=== PATIENT | male | born 1965 | race Caucasian/White ===

== ENCOUNTER 2019-12-24 12:02 | Inpatient (IN) | payer MEDICAID ==
[~2019-12-24] VITALS: Ht 190.5 cm; Wt 156.0 kg
[2019-12-24] MEDS ORDERED: NO HOME MEDS (12:48)
[2019-12-24] MEDS ORDERED: normal saline 1000ML IV soln IVB ONE (12:55)
[2019-12-24 13:22] LABS: BASOPHILS % (AUTO) 0.2 % (0-1); EOSINOPHILS % (AUTO) 0.7 % (0-6); HEMATOCRIT 34.7 % (42.0-52.0); HEMOGLOBIN 11.3 g/dl (14.0-17.9); LYMPHOCYTES # (AUTO) 0.8 X10'3 (1.1-4.8); LYMPHOCYTES % (AUTO) 12.6 % (21-51); MEAN CORPUSCULAR HEMOGLOBIN 25.6 PG (27.0-31.0); MEAN CORPUSCULAR HGB CONC 32.5 g/dL (33.0-36.5); MEAN CORPUSCULAR VOLUME 78.8 FL (78-98); MEAN PLATELET VOLUME 7.5 FL (7.4-10.4); MONOCYTES # (AUTO) 0.9 X10'3 (0-0.9); MONOCYTES % (AUTO) 13.6 % (2-12); NEUTROPHILS # (AUTO) 4.6 X10'3 (1.8-7.7); NEUTROPHILS % (AUTO) 72.9 % (42-75); PLATELET COUNT 195 X10'3 (140-440); RED CELL DISTRIBUTION WIDTH 17.4 % (11.5-14.5); WHITE BLOOD COUNT 6.4 X10'3 (4.5-11.0)
[2019-12-24 13:25] LABS: CLARITY,URINE CLEAR (Clear); COLOR,URINE STRAW (Yellow); GLUCOSE, URINE NEGATIVE (Neg); KETONES,URINE NEGATIVE (Neg); LEUKOCYTE ESTERASE ,URINE NEGATIVE (Neg); NITRITES, URINE NEGATIVE (Neg); OCCULT BLOOD,URINE SMALL (Neg); PROTEIN,URINE 30 mg/dl (Neg); UROBILINOGEN,URINE 0.2 E.U/dL (0.2-1.0)
[2019-12-24 13:27] LABS: UA COLLECTION TYPE NON-SPECIFIED
[2019-12-24] MEDS ORDERED: piperacillin/tazo 3.375gm/50ml 50 ML IV ONE (13:30)
[2019-12-24 13:31] LABS: BACTERIA,URINE NONE SEEN /HPF (Neg); MUCUS STRANDS NONE SEEN /LPF (Neg); RBC,URINE NONE SEEN /HPF (0-2); SQUAMOUS EPITHELIAL CELL,UR FEW /LPF (FEW); WBC,URINE NONE SEEN /HPF (0-4)
[2019-12-24 13:33] LABS: PARTIAL THROMBOPLASTIN TIME 28 SECONDS (22-32)
[2019-12-24 13:35] LABS: ALANINE AMINOTRANSFERASE 114 U/L (12-78); ALBUMIN 2.1 G/DL (3.4-5.0); ALBUMIN/GLOBULIN RATIO 0.4 (1.1-1.5); ALKALINE PHOSPHATASE 105 IU/L (46-116); ANION GAP 4 (8-16); ASPARTATE AMINO TRANSFERASE 103 U/L (10-37); BILIRUBIN,TOTAL 0.3 MG/DL (0.1-1.0); BLOOD UREA NITROGEN 15 MG/DL (7-18); BUN/CREATININE RATIO 10.6 (5.4-32.0); CALCIUM 7.2 MG/DL (8.5-10.1); CHLORIDE 98 MMOL/L (99-107); CREATININE 1.41 MG/DL (0.60-1.10); GLUCOSE 209 MG/DL (70-104); POTASSIUM 3.6 MMOL/L (3.5-5.1); SODIUM 134 MMOL/L (135-145); TOTAL CARBON DIOXIDE 31.6 MMOL/L (24-32); TOTAL PROTEIN 7.9 G/DL (6.4-8.2); eGFR 53 ML/MIN
[2019-12-24 13:43] LABS: C-REACTIVE PROTEIN 5.33 MG/DL (0.0-0.5); LACTATE DEHYDROGENASE 292 U/L (85-227); MAGNESIUM 1.6 MG/DL (1.5-2.4); TROPONIN I 0.09 NG/ML (0.0-0.05)
[2019-12-24] MEDS ORDERED: furosemide 10 MG/1 ML 10ml inj IV ONE (14:00)
[2019-12-24] MEDS ORDERED: aspirin 325mg tablet PO ONE (14:00)
[2019-12-24 14:29] LABS: HEMOGLOBIN A1C 7.7 % (4.5-6.2)
[2019-12-24] MEDS ORDERED: magnesium hydroxide 30ml (MOM) UD suspension PO PRN (15:10)
[2019-12-24] MEDS ORDERED: nitroGLYCERIN 0.4mg SUBLingual tab SL PRN (15:10)
[2019-12-24] MEDS ORDERED: morphine 2 MG/ML inj. syringe IV PRN ×2 (15:10)
[2019-12-24] MEDS ORDERED: acetaminophen 325mg tablet PO PRN ×2 (15:10)
[2019-12-24] MEDS ORDERED: mag hydrox/Alum hydrox/simeth 30ml oral suspension PO PRN (15:10)
[2019-12-24] MEDS ORDERED: HYDROcodone/acetaminophen 10/325mg tab PO PRN (15:10)
[2019-12-24] MEDS ORDERED: ondansetron/PF 4mg/2ml inj IV PRN (15:10)
--- NOTE | 2019-12-24 15:43 | NUR ---
Pt.'s mother called to check on pt., Pt. says he is OK with me telling her he is being admitted. Informed pt.'s mother he is being admitted and she can visit him.
[2019-12-24 16:45] LABS: URINE AMPHETAMINE SCREEN NEGATIVE (Neg); URINE BARBITUATE SCREEN NEGATIVE (Neg); URINE BENZODIAZEPINES SCREEN NEGATIVE (Neg); URINE CANNABINOID SCREEN NEGATIVE (Neg); URINE COCAINE SCREEN NEGATIVE (Neg); URINE METHADONE SCREEN NEGATIVE (Neg); URINE OPIATE SCREEN NEGATIVE (Neg); URINE PHENCYCLIDINE SCREEN NEGATIVE (Neg)
--- NOTE | 2019-12-24 17:05 | NUR ---
RECEIVED REPORT FROM PAUL. CHAIREZ VIA TELEPHONE.
[2019-12-24 17:25] VITALS: BP 159/99
[2019-12-24] MEDS ORDERED: dextrose ORAL solution 15 GM/59 ML bottle PO PRN ×2 (17:50)
[2019-12-24] MEDS ORDERED: MESSAGE TO PHARMACY PO ONE (17:50)
[2019-12-24] MEDS ORDERED: insulin Lispro (HumaLOG) vial - multi-dose SQ SCH (17:50)
[2019-12-24] MEDS ORDERED: dextrose 50%-water 50ml dispensing syringe IV PRN ×2 (17:50)
[2019-12-24] MEDS ORDERED: glucagon, human recombinant 1mg kit SUBCUT PRN (17:50)
--- NOTE | 2019-12-24 17:59 | NUR ---
PAGER ID: [phone] MESSAGE: DR. DIAS, [id number]/SHERRIE, WOULD YOU LIKE TO ORDER ACCUCHECKS AC/HS WITH PROTOCOL? CONOR [id number]. TY
[2019-12-24 18:00] VITALS: BP 165/101
--- NOTE | 2019-12-24 18:15 | NUR ---
Patient in room PCU 3012. I have received report from MIHAELA PERDOMO and had the opportunity to ask questions and assume patient care.
--- NOTE | 2019-12-24 18:33 | NUR ---
Problems reprioritized. Patient report given, questions answered & plan of care reviewed with MIHAELA TANNER.
[2019-12-24] MEDS: metoprolol tartrate 50mg tablet PO SCH (20:10)
[2019-12-24] MEDS: furosemide 40mg/4ml inj IV SCH (20:10)
[2019-12-24] MEDS: insulin glargine (Lantus) pen - multi-dose SQ SCH (21:00)
[2019-12-24 22:00] VITALS: BP 176/102
[2019-12-24 23:49] VITALS: BP 158/98
[2019-12-25 02:00] VITALS: BP 167/112
[2019-12-25 05:32] LABS: BASOPHILS % (AUTO) 0.3 % (0-1); EOSINOPHILS % (AUTO) 0.2 % (0-6); HEMATOCRIT 33.5 % (42.0-52.0); LYMPHOCYTES # (AUTO) 1.1 X10'3 (1.1-4.8); LYMPHOCYTES % (AUTO) 16.9 % (21-51); MEAN CORPUSCULAR HEMOGLOBIN 25.7 PG (27.0-31.0); MEAN CORPUSCULAR HGB CONC 32.9 g/dL (33.0-36.5); MEAN CORPUSCULAR VOLUME 78.1 FL (78-98); MEAN PLATELET VOLUME 7.6 FL (7.4-10.4); MONOCYTES # (AUTO) 1.1 X10'3 (0-0.9); NEUTROPHILS # (AUTO) 4.4 X10'3 (1.8-7.7); NEUTROPHILS % (AUTO) 66.6 % (42-75); PLATELET COUNT 207 X10'3 (140-440); RED BLOOD COUNT 4.29 X10'6 (4.70-6.10); RED CELL DISTRIBUTION WIDTH 17.6 % (11.5-14.5); WHITE BLOOD COUNT 6.6 X10'3 (4.5-11.0)
[2019-12-25 05:42] LABS: ALBUMIN 2.2 G/DL (3.4-5.0); ANION GAP 4 (8-16); BLOOD UREA NITROGEN 13 MG/DL (7-18); BUN/CREATININE RATIO 10.2 (5.4-32.0); CALCIUM 8.2 MG/DL (8.5-10.1); CHLORIDE 98 MMOL/L (99-107); CREATININE 1.28 MG/DL (0.60-1.10); GLUCOSE 126 MG/DL (70-104); POTASSIUM 3.2 MMOL/L (3.5-5.1); SODIUM 135 MMOL/L (135-145); TOTAL CARBON DIOXIDE 33.5 MMOL/L (24-32); TROPONIN I 0.09 NG/ML (0.0-0.05); eGFR 59 ML/MIN
[2019-12-25 06:20] LABS: ANISOCYTOSIS 1+; MICROCYTOSIS 1+; PLATELET ESTIMATE NORMAL; TOTAL CELLS COUNTED 100
[2019-12-25 07:00] VITALS: BP 136/82
[2019-12-25] MEDS: furosemide 40mg/4ml inj IV SCH ×2 (07:10→20:00)
[2019-12-25] MEDS: metoprolol tartrate 50mg tablet PO SCH ×2 (07:11→22:30)
[2019-12-25] MEDS ORDERED: enoxaparin 40mg/0.4ml syringe SUBCUT SCH (08:00)
[2019-12-25] MEDS ORDERED: lisinopril 10 MG tablet PO SCH (08:00)
[2019-12-25] MEDS ORDERED: nitroGLYCERIN 0.4mg/hour patch TD SCH (08:00)
[2019-12-25] MEDS ORDERED: aspirin 81mg tablet.DR PO SCH (08:00)
[2019-12-25] MEDS ORDERED: potassium CL 10mEq/100ml bag 100 ML IV PRN ×2 (10:25)
[2019-12-25] MEDS ORDERED: potassium Cl 20 mEq SR tablet PO PRN (10:25)
[2019-12-25] MEDS ORDERED: magnesium 2GM in 50ml NS 50 ML IV PRN (10:25)
[2019-12-25] MEDS ORDERED: magnesium 4gm in 100ml NS 100 ML IV PRN (10:25)
[2019-12-25] MEDS ORDERED: cefazolin/dext.iso 2gm/100ml 100 ML IV SCH (10:25)
--- NOTE | 2019-12-25 10:30 | NUR ---
Dr. Boothe at bedside. New order for Cefazolin 2mg IV q8 hours and potassium and mg replacement per protocol
[2019-12-25] MEDS ORDERED: cefazolin/dext.iso 2gm/50ml 50 ML IV SCH (10:45)
[2019-12-25 11:00] VITALS: BP 131/78
[2019-12-25 11:14] LABS: MAGNESIUM 1.4 MG/DL (1.5-2.4)
[2019-12-25] MEDS: magnesium Cl slow-release 64mg tablet PO PRN ×2 (11:18→22:28)
[2019-12-25] MEDS: HYDROcodone/acetaminophen 5mg/325mg tablet PO PRN ×2 (11:18→15:58)
[2019-12-25] MEDS: potassium Cl 20 mEq SR tablet PO PRN ×3 (11:19→22:30)
[2019-12-25 15:00] VITALS: BP 147/95
--- NOTE | 2019-12-25 16:52 | NUR ---
DM consult: Pt with A1c 7.7. Pt admitted with acute on chronic systolic heart failure and with new dx of T2DM. Pt seen at bedside provided with thorough written and verbal protein and DM education with referral to outpatient CDE course. All of patient's questions were answered at this time. RD contact information provided. Pt currently on a heart healthy CHO controlled diet documented with 100% PO intake. Pt endorses a good appetite and states he's still hungry after meals. Pt agrees to double protein TID, d/w dietary. Pt denies food allergies, difficulty chewing/swallowing, or constipation/diarrhea. LBM 3/2. Will continue to follow. Recommendations: 1) Continue heart healthy CHO controlled diet 2) Double eggs q breakfast, double meat BIDLD 3) Bowel care PRN 4) Wt per rx Addendum: 12/25/19 at [address] Amended: Links added.
--- NOTE | 2019-12-25 18:37 | NUR ---
Problems reprioritized. Patient report given, questions answered & plan of care reviewed with MIHAELA St.
--- NOTE | 2019-12-25 18:38 | NUR ---
received report from MIHAELA Hickey
[2019-12-25] MEDS ORDERED: mineral oil/petrolatum, white cream 113gm jar TP SCH (20:00)
[2019-12-25] MEDS: insulin glargine (Lantus) pen - multi-dose SQ SCH (22:09)
[2019-12-25 22:30] VITALS: BP_SYST 138
--- NOTE | 2019-12-26 00:43 | NUR ---
PAGER ID: [phone] MESSAGE: pt [id number] Jose Richmond decided to leave AMA. [phone]
[2019-12-26 07:48] LABS: HBSAG SCREEN Negative (Negative); HEPATITIS C ANTIBODY 10.8 s/co ratio (0.0-0.9)
== END 2019-12-26 00:51 | disposition left against medical advice (07) | DRG 194 ==
LOC: ER 12:02 → ED HOLD 15:08 → UNDOADMIN 15:22 → ED HOLD 15:22 → PCU 3S 17:14 → ED HOLD 17:14
PROVIDERS: ADMIT Internal Medicine; ATTEND Family Medicine
DX: I11.0 Hypertensive heart disease with heart failure (principal); N17.9 Acute kidney failure, unspecified; E11.69 Type 2 diabetes mellitus with other specified complication; E11.65 Type 2 diabetes mellitus with hyperglycemia; E66.01 Morbid (severe) obesity due to excess calories; L03.116 Cellulitis of left lower limb; I50.23 Acute on chronic systolic (congestive) heart failure; D50.9 Iron deficiency anemia, unspecified; E87.6 Hypokalemia; Z53.29 Procedure and treatment not carried out because of patient's decision for other reasons; R74.0 Nonspecific elevation of levels of transaminase and lactic acid dehydrogenase [LDH]; F15.10 Other stimulant abuse, uncomplicated; I50.813 Acute on chronic right heart failure; F17.210 Nicotine dependence, cigarettes, uncomplicated; Z68.41 Body mass index [BMI] 40.0-44.9, adult
CPT/HCPCS: 36415; 71045; 80048; 80053; 80305; 81001; 82948; 83036; 83605; 83615; 83735; 83880; 84145; 84484; 85025; 85610; 85730; 86140; 86803; 87081; 87340; 93005; 93306; 99285; G0378; J1650; J1815; J1940; J2543; J7030